=== PATIENT | female | born 1955 | race Caucasian/White ===

== ENCOUNTER 2021-04-15 13:41 | Inpatient (IN) | payer MEDICARE ==
[~2021-04-15] VITALS: Ht 170.2 cm; Wt 146.6 kg
--- NOTE | 2021-04-15 13:45 | NUR ---
TO ROM BY EMS FOR TRIAGE
--- NOTE | 2021-04-15 14:01 | NUR ---
POC REVIEWED. CALL LESTER IN REACH
[2021-04-15 14:10] LABS: HEMATOCRIT 45.2 % (37.0-47.0); HEMOGLOBIN 14.7 g/dl (12.0-16.0); IMMATURE GRANULOCYTES 0.5 % (0.0-5.0); MEAN CELL VOLUME 94.6 fL CALC (80.0-100.0); MEAN CORPUSCULAR HGB 30.8 pG CALC (26.0-32.0); MEAN CORPUSCULAR HGB CONC 32.5 g/dL CAL (32.0-36.0); NEUT# 14.8 thou/uL (2.00-7.15); RED BLOOD COUNT 4.78 mill/uL (4.20-5.60); RED CELL DISTRI WIDTH 13.3 % (11.5-15.5)
[2021-04-15 14:25] LABS: PROTHROMBIN TIME 10.5 SECONDS (9.0-12.5)
[2021-04-15 14:27] LABS: ALBUMIN 3.7 g/dL (3.2-5.0); ALKALINE PHOSPHATASE 103 u/l (38-126); ANION GAP 13 (6-22 (CALC)); BILIRUBIN, TOTAL 2.5 mg/dL (0.0-1.4); BUN 28 mg/dL (8-23); BUN/CREATININE RATIO 33 (12-20 (CALC)); CARBON DIOXIDE 26 mmol/l (22-30); CHLORIDE 101 mmol/l (95-108); CPK 856 u/l (30-165); CREATININE 0.8 mg/dL (0.5-1.0); GFR > 60 ML/MIN (>=60 (CALC)); GFR FOR AFR.AMER. > 60 ML/MIN (>=60 (CALC)); POTASSIUM 3.6 mmol/l (3.5-5.1); SGOT/AST 70 u/l (9-36); SODIUM 136 mmol/l (137-146); TOTAL PROTEIN 7.8 g/dL (6.3-8.2)
--- NOTE | 2021-04-15 14:28 | NUR ---
CAMILA FROM LAB CALLED, LACTIC 2.8
[2021-04-15] MEDS ORDERED: GABAPENTIN100 MG PO (14:53)
[2021-04-15] MEDS ORDERED: LISINOPRIL10 MG PO (14:54)
[2021-04-15] MEDS ORDERED: METOPROL TAR25 MG PO (14:54)
[2021-04-15] MEDS ORDERED: PRAVASTATIN20 MG PO (14:54)
--- NOTE | 2021-04-15 15:30 | NUR ---
PT SUPINE, STABLE ON MONITOR. NO CONCERNS VOICED. CALL LIGHT WITHIN REACH, BED IN LOW POSITION.
[2021-04-15 16:26] LABS: URINE BLOOD DIPSTICK LARGE (NEGATIVE); URINE COLOR YELLOW; URINE GLUCOSE - DIPSTICK NEGATIVE (NEGATIVE); URINE KETONE TRACE mg/dL (NEGATIVE); URINE LEUK ESTERASE NEGATIVE (NEGATIVE); URINE PROTEIN - DIPSTICK 100 mg/dL (NEG-TRACE); URINE SPECIFIC GRAVITY 1.025; URINE UROBILINOGEN - DIPSTICK >=8.0 E.U./dL (0.2)
[2021-04-15 16:32] LABS: URINE BILIRUBIN - DIPSTICK MODERATE (NEGATIVE); URINE NITRITE - DIPSTICK POSITIVE (Negative)
[2021-04-15 16:35] LABS: URINE BACTERIA FEW hpf; URINE SQUAMOUS EPITHELIAL CELL FEW EPI/hpf (0-FEW)
--- NOTE | 2021-04-15 16:51 | NUR ---
IV MEDS INFUSING WITHOUT DIFFICULTY.
--- NOTE | 2021-04-15 17:23 | NUR ---
FAMILY AT BEDSIDE. IV FLUIDS CONTINUE TO INFUSE WITHOUT DIFFICULTY. VITALS WNL.
--- NOTE | 2021-04-15 18:03 | NUR ---
ATTEMPTED TO CALL REPORT TO FLOOR, NURSE TO CALL BACK.
[2021-04-15 18:23] VITALS: BP 115/70
--- NOTE | 2021-04-15 18:36 | NUR ---
REPORT RECEIVED FROM JANUARY, PT TRANSPORTED TO ROOM VIA STRETCHER AND ASSISTED TO BED, LETHARGIC BLUR ORIENTED X 4, ORIENTED TO ROOM AND CALL LESTER, TELE MONITOR IN PLACE, VITAL SIGNS MEASURED WITH O2 SAT @ 82 ON R/A, O2 @ 2L APPLIED AND SATS WENT UP TO 92% THEN QUICKLY BACK DOWN TO 88%, RESPIRATORY THERAPIST NOTIFIED APPLIED VENTI MASK @ 3.5L, SATS WENT UP TO 93%. PT USING ABD MUSCLES TO BREATHE AT THIS TIME AND BREATHES BY MOUTH WITH SHALLOW BREATHS. HS NURSE WILL CONTINUE MONITORING AND ASSESSING, PT REMAINS VERY LETHARGIC AND FALLS INTO DEEP SNORING SLEEP BUT AROUSABLE AND ORIENTED WHEN AWAKE.
--- NOTE | 2021-04-15 20:13 | NUR ---
PHYSICAL ASSESMENT COMPLETE. PT CURRENTLY HAS LAGORED BREATHS ON 3.5 VENTI-MASK. SCHEDULED MEDICATIONS AND PRN MEDICATION ADMINISTERED, SEE E-MAR. PT DENIES ANY NEEDS AT THIS TIME. PLAN OF CARE REVIEWED, PT IS LATHARGIC BUT- VERBALIZES UNDERSTANDING. ITEMS WITHIN REACH, BED LOCKED IN LOW POSITION W/ BEDRAILS UP X2. CALL LESTER WITHIN REACH, AGREES TO CALL PRN.
[2021-04-16] VITALS (28 sets, daily range): BP systolic 88–154; BP diastolic 46–89
--- NOTE | 2021-04-16 00:45 | NUR ---
PT STILL REMAIN LETHARGIC AND STRUGGLES TO REMAIN AWAKE WHEN SPOKEN TOO. BALLOON ARTIST REPORTS PTS HEART RATE IS FLUCTUATING BETWEEN 110 AND 130 SINUS TACHY. THE PURWICK SYSTEM WAS PLACED THE PT HAS NOT URINATED SINCE ARRIVING TO THE FLOOR. ADVISED SOIL TECHNOLOGIST TRINO AND OTHER NURSE OF PTS CONDITION. AN EKG AND ABG WAS ORDERED. BLADDER SCAN REVEALED 510 ML RETENTION. RESPRITORY THERAPIST ADJUSTED VENTI MASK/O2 TO 35%. PT SATING AT 94%. WILL CONTINUE TO MONITOR.
--- NOTE | 2021-04-16 01:40 | NUR ---
PTS HEART RATE HAS LOWERED AND IMPROVED TO 110 BPM. WILL CONTINUE TO MONITOE.
--- NOTE | 2021-04-16 04:52 | NUR ---
PT VOIDED AT LEAST 400 CC OF DARK URINE. FRESH PURWICK IN PLACE. PT IS NOW COHEREENT AND COMMUICATING WITH NURSE AND RADIOLOGY SUPERVISOR. PT REQUESTED FRESH WATER AND TOOTHPASTE. WILL CONTINUE TO MONITOR.
[2021-04-16 06:01] LABS: HEMOGLOBIN 13.8 g/dl (12.0-16.0); MEAN CELL VOLUME 95.8 fL CALC (80.0-100.0); MEAN CORPUSCULAR HGB 30.7 pG CALC (26.0-32.0); MEAN CORPUSCULAR HGB CONC 32.1 g/dL CAL (32.0-36.0); NEUT# 13.26 thou/uL (2.00-7.15); RED BLOOD COUNT 4.49 mill/uL (4.20-5.60); RED CELL DISTRI WIDTH 13.7 % (11.5-15.5)
[2021-04-16 06:14] LABS: ALKALINE PHOSPHATASE 99 u/l (38-126); BILIRUBIN, TOTAL 3.1 mg/dL (0.0-1.4); BUN 33 mg/dL (8-23); BUN/CREATININE RATIO 32 (12-20 (CALC)); CARBON DIOXIDE 25 mmol/l (22-30); CHLORIDE 102 mmol/l (95-108); GFR 55 ML/MIN (>=60 (CALC)); GFR FOR AFR.AMER. > 60 ML/MIN (>=60 (CALC)); SGOT/AST 54 u/l (9-36); SODIUM 135 mmol/l (137-146)
[2021-04-16 06:19] LABS: ALBUMIN 2.9 g/dL (3.2-5.0); ANION GAP 13 (6-22 (CALC)); POTASSIUM 4.5 mmol/l (3.5-5.1); TOTAL PROTEIN 6.2 g/dL (6.3-8.2)
--- NOTE | 2021-04-16 07:00 | NUR ---
SHIFT CHANGE REPORT, PT SLEEPING AND SNORING BUT WILL AROUSE TO VERVAL AND TACTILE STIMULATION, REMAINS VERY LETHARGIC AND FALLS BACK INTO A SNORING SLEEP, VENTI MASK IN PLACE, IVF INFUSING, PUREWICK CATHETER IN PLACE, CALL LESTER IN REACH AND BED LOCKED IN LOWEST POSITION, WILL CONTINUE TO MONITOR.
--- NOTE | 2021-04-16 08:44 | NUR ---
NURSE AWAKENED PT WITH VERBAL STIMULATION, ORIENTED HER TO TIME, SAT HER UP IN BED AND SET HER UP TO PERFORM ORAL CARE, SHE DID THAT INDEPENDENTLY, SHE IS NOT LETHARGIC SHE WAS EARLIER, WILL SET HER UP FOR MEAL AT THIS TIME AND CONTINUE TO MONITOR.
--- NOTE | 2021-04-16 09:04 | NUR ---
SITTING UP IN BED NOW, MEDICAL TEAM ROUNDED AND DISCUSSED PLAN OF CARE, PT IS FULLY ORIENTED AND STATED UNDERSTANDING, SHE IS NOW HAVING MEAL AND BEING MONITORED FOR LETHARGY AND EFFECTIVE SWALLOWING.
--- NOTE | 2021-04-16 10:33 | NUR ---
PT REPORTED SHE LIVES WITH SON'S FAMILY [place] SHE FELL, IT TOOK 2 DAYS FOR THE TIMBER TREATMENT PLANT OPERATOR TO DISCOVER HER ON THE FLOOR THEN EMS WAS CALLED WHO TRANSPORTED HER TO ED.
--- NOTE | 2021-04-16 12:25 | NUR ---
PT TO ICU BED 4 VIA BED. REPORT RECEIVED FROM ZIGGY. PT HESISTANT ABOUT BEING PLACED ON BIPAP. RT AND MYSELF DISUCSSED BENEFITS OF BIPAP WITH PATIENT. PATIENT IS AGREEABLE AT THIS TIME TO BE PLACED ON BIPAP. RT PLACED PATIENT ON BIPAP. PT IS ALERT AND ORIENTED X3. ORIENTED TO ROOM AND UNIT. CALL LIGHT IN REACH. WILL CONTINUE TO MONITOR.
--- NOTE | 2021-04-16 12:32 | NUR ---
PT ARRIVED TO ICU FROM [facility] MRI. PT PLACED ON BIPAP PER ORDER. PT KRISTIN WELL AT THUIS TIME. NAD. VSS. MANAGER PSYCHOLOGY TO MONITOR.
--- NOTE | 2021-04-16 12:36 | NUR ---
TRANSFERRED TO ICU AT THIS TIME BY MD'S ORDER DUE TO HYPOXIA (O2 SATS @ 87-91) AND CONTINUED LETHARGY.
--- NOTE | 2021-04-16 12:40 | NUR ---
LAB AT BEDSIDE TO OBTAIN NOON TROPONIN
--- NOTE | 2021-04-16 14:00 | NUR ---
LOTT PLACED USING STERILE TECHNIQUE. # 20 PLACED TO LEFT HAND. PT TOLERATED WELL. DR BRAUN NOTIFIED OF MULTI PVCS MAG LEVEL ORDERED.
--- NOTE | 2021-04-16 16:10 | NUR ---
NEW ORDERS RECEIVED AT THIS TIME
--- NOTE | 2021-04-16 16:17 | NUR ---
RT AND LAB AT BEDSIDE AT THIS TIME.
[2021-04-16 16:36] LABS: ALBUMIN 3.2 g/dL (3.2-5.0); CREATININE 1.2 mg/dL (0.5-1.0); POTASSIUM 4.1 mmol/l (3.5-5.1)
--- NOTE | 2021-04-16 16:45 | NUR ---
DR SOLO AT BEDSIDE FOR CENTRAL LINE PLACEMENT.
--- NOTE | 2021-04-16 17:10 | NUR ---
RADIOLOGY AT BEDSIDE AT THIS TIME FOR STAT PORTABLE CHEST XRAY.
--- NOTE | 2021-04-16 17:45 | NUR ---
CONTACTED Josefina HIGHTOWER IN REFERENCE TO NOTED INVOLUNTARY MOVEMENT OF LEFT UPPER EXTREMITY. COMPLETED NEURO EXAM COMPLETED AT THIS TIME.
--- NOTE | 2021-04-16 18:06 | NUR ---
PHONE TELE NEURO SPECIALIST FOR CONSULT.
--- NOTE | 2021-04-16 18:13 | NUR ---
NURSE STEREOPLOTTER OPERATOR EVELINE CALLED FOR REPORT ON PATIENT. REPORT PROVIDED.
--- NOTE | 2021-04-16 19:00 | NUR ---
REPORT GIVEN BY LUIS. PATIENT RESTING IN BED WITH EYES CLOSED. RESP EVEN AND UNLABORED WITH BIPAP IN PLACE 30% FIO2, RATE 16, 10 IPAP, AND 5 EPAP. PATIENT RESPONDS TO VIOCE AND A&O X 4. IV INFUSING FLUIDS. LOTT DRAINING DARK MICHAEL COLORED URINE. FALL AND SAFTEY PRECAUTIONS IN PLACE. SKIN INTACT. PLAN OF CARE DISCUSSED. PATIENT INFORMED TO CALL WITH ANY QUESTIONS OR CONCERNS.
--- NOTE | 2021-04-16 19:20 | NUR ---
NEW ORDERS GIVEN FOR NS 0.9% IV 500 ML BOLUS FOR POOR URINE OUTPUT. REPEAT LATIC AND TROP. CHANGE IV FLUIDS FROM 1/2 NS 75 ML/HR TO 0.9% NS 100 ML/HR. NEW ORDERS GIVEN BY DR. AN.
--- NOTE | 2021-04-16 20:00 | NUR ---
LOTTIE HIGHTOWER UPDATED ABOUT THE PATIENT'S WEIGHT AND GIRTH. NATURAL SCIENCE MANAGER CALLED AND STATED PATIENT IS TOO LARGE FOR OUR MRI, CHEMIST INSTRUMENTATION UPDATED.
--- NOTE | 2021-04-16 21:00 | NUR ---
UPDATED ON PATIENT CONDITION AND URINE OUTPUT
--- NOTE | 2021-04-16 21:27 | NUR ---
SON GABRIELLA UPDATED WITH PATIENT PERMISSION, CODE WORD GIVEN TO SON FOR FURTURE UPDATE.
--- NOTE | 2021-04-16 23:32 | NUR ---
RT AT THE BEDSIDE
[2021-04-17] VITALS (17 sets, daily range): BP systolic 86–138; BP diastolic 49–77
--- NOTE | 2021-04-17 02:00 | NUR ---
PATIENT ASKING FOR WATER AND JUICE. BOTH PROVIDED. PATIENT HAD NO DIFFCULTY. FALL AND SAFTEY PRECAUTIONS IN PLACE.
--- NOTE | 2021-04-17 03:51 | NUR ---
RT AT THE BEDSIDE CHACKING ON PATIENT
[2021-04-17 05:07] LABS: HEMOGLOBIN 11.7 g/dl (12.0-16.0); MEAN CELL VOLUME 97.4 fL CALC (80.0-100.0); MEAN CORPUSCULAR HGB 30.8 pG CALC (26.0-32.0); MEAN CORPUSCULAR HGB CONC 31.6 g/dL CAL (32.0-36.0); RED BLOOD COUNT 3.8 mill/uL (4.20-5.60); RED CELL DISTRI WIDTH 13.5 % (11.5-15.5)
[2021-04-17 05:28] LABS: ANION GAP 9 (6-22 (CALC)); BUN 30 mg/dL (8-23); BUN/CREATININE RATIO 38 (12-20 (CALC)); CALCULATED LDLCHOLESTEROL 82 mg/dL (62-129 (CALC)); CARBON DIOXIDE 29 mmol/l (22-30); CHLORIDE 101 mmol/l (95-108); CHOLESTEROL HDL RATIO 9.1 (<4.4 (CALC)); CPK 294 u/l (30-165); CREATININE 0.8 mg/dL (0.5-1.0); GFR > 60 ML/MIN (>=60 (CALC)); GFR FOR AFR.AMER. > 60 ML/MIN (>=60 (CALC)); HDL CHOLESTEROL 14 mg/dL (>=40); MAGNESIUM 2.3 mg/dL (1.6-2.3); POTASSIUM 3.9 mmol/l (3.5-5.1); SODIUM 135 mmol/l (137-146); TOTAL CHOLESTEROL 130 mg/dl (0-199); TOTAL TRIGLYCERIDES 170 mg/dl (30-149); VLDL CHOLESTROL 34 mg/dl (1-41 (CALC))
--- NOTE | 2021-04-17 05:47 | NUR ---
UPDATED SON KAT ON PATIENT CONDITION WITH PATIENT'S PERMISSSION.
--- NOTE | 2021-04-17 06:45 | NUR ---
PT IN BED, LAYING FLAT. NO ACUTE DISTRESS NOTED AT THIS TIME. PT SEEMS AROUSABLE. RESPIRATORY STATUS IS UNCOMPROMISED AT THIS TIME. AMBULANCE DRIVER PARAMEDIC TO MONITOR.
--- NOTE | 2021-04-17 07:00 | NUR ---
PATIENT RECIEVED FROM NIGHT NURSE.
--- NOTE | 2021-04-17 07:28 | NUR ---
PATIENT ASSESSED. A/O X3. ON BIPAP CURRENTLY 98% O2 SATS. ON ROOM AIR SHE SATS MID 80'S WHEN SHE IS TALKING. ROOM AIR NOT TALKING SHE SATS 90%. PERRLA. DRY MOUTH, REQUESTED SOME WATER AND CRANBERRY JUICE, WAS PROVIDED. CLEAR/DIM LUNG SOUNDS. ABD SOFT AND OBESE. HYPOACTIVE BOWEL SOUNDS. PATIENT UNABLE TO RECALL RECENT BOWEL MOVEMENT. SKIN IS INTACT. EDEMA IN BLE PITTING 1. WEAK PEDAL PULSES, OTHER PULSES STRONG. DOES HAVE SOME WEAKNESS WHEN LIFTING UP HER EXTREMITIES, PATIENT STATES SHE FEELS WEAK/TIRED. SAEFTY MEASURES IN PLACE. CALL LIGHT IN REACH. WILL CONTINUE TO MONITOR.
--- NOTE | 2021-04-17 08:00 | NUR ---
PATIENT IS NOW ON 15L HIGH FLOW NC. SATS ARE 98% WHILE EATING HER BREAKFAST. SITTING HIGH CANALES AT THIS TIME. SAFETY MEASURES IN PLACE. CALL LIGHT IN REACH. WILL CONTINUE TO MONITOR.
--- NOTE | 2021-04-17 08:02 | NUR ---
prelim blood cx results show gram positive cocci in 4/4 vials, reported to bruce, changed pt to vancomycin. will f/u with final results
--- NOTE | 2021-04-17 10:00 | NUR ---
PATIENT LAYING IN BED, WITH BIPAP ON PER DOCTOR'S ORDERS.
--- NOTE | 2021-04-17 10:20 | NUR ---
S: CELSETINE FRAIRE is a 65 F who presents with bacteremia. She has a history of HTN, high cholesterol. All medications in patient's chart were reviewed. O: VS: BP 136/57 mmHg, P 95 bpm, RR 18 bpm,T 97.2 F W 145 Kg, HT 67 IN, Scr=0.8 mg/dl, CrCl= 126.7 ml/min A: Preliminary Blood cultures shows gram positive cocci. Urine culture shows no growth. P: Patient is on no other ABX. Vancomycin ordered for pharmacy to dose. Start Vancomycin 1250 mg IV Q8H. Vancomycin trough is drawn before the 4th dose on 04/18 @ 0830. Vancomycin goal trough is between 15-20 mcg/ml. Pharmacy will follow and or advise on antibiotics use as needed.
--- NOTE | 2021-04-17 10:30 | NUR ---
PATIENT'S SON GABRIELLA, GAVE US HER CODE AND REQUESTED AN UPDATE ON HIS MOTHER. UPDATE WAS GIVEN. GABRIELLA STATED THAT HE WAS HAPPY WITH THE UPDATES GIVEN AND THAT HE WILL BE CALLING LATER TODAY FOR ANOTHER UPDATE.
--- NOTE | 2021-04-17 10:52 | NUR ---
Physical Therapy Note: Physical therapist went to see the patient for physical therapy. Patient expressed that she just wants to rest and to reschedule physical therapy for another day.
--- NOTE | 2021-04-17 12:00 | NUR ---
PATIENT IS CURRENTLY RESTING IN BED
--- NOTE | 2021-04-17 12:45 | NUR ---
PATIENT IS GETTING HER ULTRASOUND DONE NOW
--- NOTE | 2021-04-17 13:27 | NUR ---
AGITATOR OPERATOR AND RN ASSISTED PT TO BEDSIDE CHAIR. PT KRISTIN WELL AT THIS TIME. PT STILL ON NIV. KRISTIN WELL. AGITATOR OPERATOR TO MONITOR.
--- NOTE | 2021-04-17 13:30 | NUR ---
PATIENT IS SITTING UP IN CHAIR EATING LUNCH AT THIS TIME. SAEFTY MEASURES IN PLACE. CALL LIGHT IN REACH. WILL CONTINUE TO MONITOR.
--- NOTE | 2021-04-17 14:14 | NUR ---
PATIENT RECIEVED A FULL BED BATH AND CLEAN LINENS. PATIENT STATED SHE FEELS SO MUCH BETTER. PATIENT REQUESTED TO CONTINUE TO SIT UP IN THE CHAIR AND WATCH TV. SAEFTY MEASURES IN PLACE. CALL LIGHT IN REACH. WILL CONTINUE TO MONTIOR.
--- NOTE | 2021-04-17 15:00 | NUR ---
PATIENT'S SON CAME UP TO VISIT HER.
--- NOTE | 2021-04-17 16:00 | NUR ---
PATIENT RESTING IN BED WITH BIPAP ON, O2 SATS ARE 98%. SAEFTY MEASURES IN PLACE CALL LIGHT IN REACH WILL CONTINUE TO MONIOTR.
--- NOTE | 2021-04-17 18:00 | NUR ---
PATIENT IS TALKING ON THE PHONE, WATCHING TV AND EATING DINNER. SAFETY MEASURES IN PLACE. CALL LIGHT IN REACH. WILL CONTINUE TO MONITOR.
--- NOTE | 2021-04-17 18:32 | NUR ---
SON GABRIELLA CALLED FOR AN UPDATE, UPDATE WAS GIVEN. STATED THAT HE WILL CALL HIS MOTHER ON HER CELL PHONE.
--- NOTE | 2021-04-17 19:12 | NUR ---
PT CURRENTLY OFF BIPAP WITH 4L NASAL CANNULA. RESTING WELL. HR 72, RR 16, SPO2 95%. WILL CONTINUE WITH BIPAP TONIGHT.
--- NOTE | 2021-04-17 19:50 | NUR ---
RESTING IN BED ON ROUNDS. AWAKE, ALERT AND ORIENTED. RESP NON-LABORED. O2 ON AT 5 L HFNC PATIENT JUST FINISHED EATING DINNER AND IS CURRENTLY ON THE PHONE WITH HER FAMILY. O2 SAT 93-95% BREATH SOUNDS DIMINISHED THROUGHOUT LUNG SIMENTAL. LOTT PATENT DRAINING CLEAR TEA COLORED URINE. 1+ EDEMA OF BLE. WEAKLY PALPABLE PERIPHERAL PULSES. RIJTLC IN PLACE NS INFUSING AT 30 ML/HR AND TWO PORTS SALINELOCKED. IV SITE SALINE LOCKED, FLUSHED AND PATENT. ORDER PACKER SHOWS SR WITH OCC PVC'S. DISCUSSED PLAN OF CARE. DENIES NEEDS AT THIS TIME. CALL LESTER IN REACH.
--- NOTE | 2021-04-17 21:51 | NUR ---
PATIENT PLACED ON BIPAP FOR THE NIGHT BY BOOT MAKER.
--- NOTE | 2021-04-17 21:52 | NUR ---
PT PLACED BACK ON BIPAP FOR THE NIGHT / 30%. TOLERATING WELL HR 91, RR 24, SPO2 95%
[2021-04-18] VITALS (18 sets, daily range): BP systolic 99–160; BP diastolic 56–85
--- NOTE | 2021-04-18 | NUR ---
RESTING IN BED WITH EEYS CLOSED. BIPAP IN PLACE. RESP NON-LABORED. VSS. SR WITH OCC PVC'S ON MONITOR.
--- NOTE | 2021-04-18 02:00 | NUR ---
RESTING WITH EYES CLOSED. O2 SAT 95% MONITOR SR WITH FREQ PVC'S NOTED.
--- NOTE | 2021-04-18 04:00 | NUR ---
NO CHANGES TO REPORT. TOLERATING BIPAP WELL. VSS. SR WITH FREQ PVC'S, 3,4 AND 5 BEAT RUNS VT, SELF TERMINATING, PATIENT ASYMPTOMATIC.
--- NOTE | 2021-04-18 05:10 | NUR ---
BLOOD DRAWN FFROM TLC FOR AM LAB WORK. ALL PORTS OF TLC FLUSHED PER PROTOCOL AND PATENT.
[2021-04-18 05:35] LABS: HEMATOCRIT 38.1 % (37.0-47.0); HEMOGLOBIN 12.2 g/dl (12.0-16.0); MEAN CELL VOLUME 96.5 fL CALC (80.0-100.0); MEAN CORPUSCULAR HGB 30.9 pG CALC (26.0-32.0); RED BLOOD COUNT 3.95 mill/uL (4.20-5.60); RED CELL DISTRI WIDTH 13.5 % (11.5-15.5)
[2021-04-18 05:52] LABS: ALBUMIN 2.6 g/dL (3.2-5.0); ANION GAP 7 (6-22 (CALC)); BUN 20 mg/dL (8-23); BUN/CREATININE RATIO 31 (12-20 (CALC)); CARBON DIOXIDE 29 mmol/l (22-30); CHLORIDE 100 mmol/l (95-108); CREATININE 0.6 mg/dL (0.5-1.0); GFR > 60 ML/MIN (>=60 (CALC)); GFR FOR AFR.AMER. > 60 ML/MIN (>=60 (CALC)); POTASSIUM 3.6 mmol/l (3.5-5.1); SGOT/AST 55 u/l (9-36); SODIUM 133 mmol/l (137-146); TOTAL PROTEIN 5.9 g/dL (6.3-8.2)
[2021-04-18 05:53] LABS: ALKALINE PHOSPHATASE 145 u/l (38-126); BILIRUBIN, TOTAL 1.6 mg/dL (0.0-1.4)
--- NOTE | 2021-04-18 06:10 | NUR ---
PATIENT SLEPT WELL. EASILY AWAKENS TO NAME. VSS. REMANS ON BIPAP.
--- NOTE | 2021-04-18 06:43 | NUR ---
PT RESTING COMFORTABLY IN BED, LAYING FOLAT. NAD. VSS. KNIFE SHARPENER TO MONITOR.
--- NOTE | 2021-04-18 06:45 | NUR ---
PATIENT RECIEVED FROM NIGHT NURSE YOSEF.
--- NOTE | 2021-04-18 07:30 | NUR ---
PATIENT ASSESSED. A/O X3. ABLE TO MAKE NEEDS KNOWN. SAT UP TO EAT BREAKFAST USED HER NC AT 4L WHILE EATING. DIMINISHED LUNG SOUNDS WITH WHEEZING IN THE LOWER LOBES OF THE LUNGS. SR/ST WITH PVC'S ON THE TELLE MONITOR. ACTIVE BOWEL SOUNDS. SOFT OBESE ABDOMEN STATES NO PAIN WHEN PALPATING. EDEMA +1 ON BLE. WEAK PEDAL PUSLES. OTHER PULSES ARE STRONG. PAINATALIA IS CONTINUE TO COMPLAIN ABOUT THE BI-PAP. EXPLAINED TO HER AGAIN THAT IT'S PER DOCTORS ORDERS. SHE MOANED AND SAID "FINE BUT AFTER I FINISH MY BREAKFAST YOU GIVE ME A BREAK THEN ILL PUT IT ON I GUESS". SAEFTY MEASURES IN PLACE. CALL LIGHT IN REACH. WILL CONTINUE TO MONITOR.
--- NOTE | 2021-04-18 08:20 | NUR ---
INFORMED PATIENT THAT SINCE WE ARE GIVING HER THE LASIX I WILL BE WAITING AN HOUR TO GIVE HER THE MORNING DOSE OF LOPRESSOR DUE TO BLOOD PRESSURE POSSIBLY GOING DOWN. SHE AGREED TO IT. SAEFTY MEASURES IN PLACE. CALL LIGHT IN REACH. WILL CONTINUE TO MONITOR.
--- NOTE | 2021-04-18 09:42 | NUR ---
pt weaned to 4lpm nc. nereida well. nad. vss.
--- NOTE | 2021-04-18 10:27 | NUR ---
PATIENT IS SITTING UP IN CHAIR WITH O2 HFNC AT 5L SATS ARE 94% WHILE SHE WATCHES TV. PATIENT IS ALLOWED TO BE OFF BI-PAP IF SHE IS UP IN THE CHAIR NOT SLEEPING PER DOCTOR STEVEN BUT WITH NC ON. SHE REQUESTED TO WASHED UP, REQUEST WAS GRANTED. CURRENTLY BRUSHING HER HAIR. CLEAN LINENS ARE PLACED ON THE BED. SAEFTY MEASURES IN PLACE. CALL LIGHT IN REACH. WILL CONTINUE TO MONITOR.
--- NOTE | 2021-04-18 12:00 | NUR ---
PATIENT IS CURRENTLY WITH ROSA.
--- NOTE | 2021-04-18 12:21 | NUR ---
Patient did seated B LE AROM exercises doing hip flexion, knee extension, hamstring curls, hip adduction, hip abduction, gluteal squeezes, and ankle AROM for 10 reps x 2 sets with minimal verbal and tactile cuing to help decrease trick movements. Patient required moderate assistance x 1 with sit to stand and bed mobility log rolling transfer ADLs for 1-2 reps with occasional verbal and tactile cuing to decrease fall risks.
--- NOTE | 2021-04-18 14:00 | NUR ---
PATIENT IS SITTING UP IN CHAIR WATCHING TV AT THIS TIME. SAEFTY MEASURES IN PLACE. CALL LIGHT IN REACH. WILL COTNINUE TO MONITOR.
--- NOTE | 2021-04-18 18:02 | NUR ---
PATIENT IS EATING AND TALKING ON THE PHONE AT THIS TIME. SAEFTY ,MEASURES IN PLACE. CALL LIGHT IN REACH. WILL CONTINUE TO MONITOR.
--- NOTE | 2021-04-18 19:20 | NUR ---
RESTING IN BED WITH EYES CLOSED. AWAKENS EASILY TO NAME. ALERT AND ORIENTED ON AWAKENING. RESP NON-LABORED. USING O2 AT 4 L HFNC AT THIS TIME. O2 SAT 95% BREATH SOUNDS DIMINISHED THROUGHOUT LUNG SIMENTAL, NO WHEEZES HEARD AT THIS TIME. 1+ EDEMA OF BLE. WEAKLY PALPABLE PEDAL PULSES. SALINE LOCK INTACT IN , SITE BENIGN. RIJTLC IN PLACE WITH NS INFUSING AT 30 ML/HR. LOTT DRAINING CLEAR MICHAEL URINE. MEDICAL CODING TECHNICIAN SHOWS SR WITH FREQ PVC'S. DICUSSED PLAN OF CARE. REINFORCE NEEDED. CALL LESTER IN REACH.
--- NOTE | 2021-04-18 21:05 | NUR ---
PT PLACED BACK ON BIPAP FOR THE NIGHT. 10/ 30%. HR 85, RR 27, SPO2 96%.
--- NOTE | 2021-04-18 22:00 | NUR ---
RESTNG WITH EYES CLOSED. RESP NON-LABORED ON BIPAP FOR THE NIGHT.
--- NOTE | 2021-04-18 22:20 | NUR ---
DR AN INFORMED OF INCREASED VENTRICULAR ECTOPY, VS, URINE OUTPUT FOR DAY SHIFT AND AM MAGNESIUM AND POTASSIUM LEVELS. NEW ORDERS RECEIVED.
[2021-04-19] VITALS (16 sets, daily range): BP systolic 113–155; BP diastolic 55–80
--- NOTE | 2021-04-19 | NUR ---
PATIENT RESTING WITH EYES CLOSED. VSS. RESP NON-LABORED. ON BIPAP. O2 SAT 97%
--- NOTE | 2021-04-19 02:00 | NUR ---
RESTING WITH EYES CLOSED. VSS. RESP NON-LABORED. SR WITH FREQ PVC'S ON MONITOR.
--- NOTE | 2021-04-19 04:00 | NUR ---
CONTINUES TO REST QUIETLY. BIPAP IN PLACE. RESP NON-LABORED. O2 SAT 96% VSS. NS INFUSING AT KVO TO RIJTLC. SR WITH FREQ PVC'S ON MONITOR.
[2021-04-19 05:01] LABS: HEMATOCRIT 39.5 % (37.0-47.0); HEMOGLOBIN 12.7 g/dl (12.0-16.0); MEAN CELL VOLUME 95.6 fL CALC (80.0-100.0); MEAN CORPUSCULAR HGB 30.8 pG CALC (26.0-32.0); MEAN CORPUSCULAR HGB CONC 32.2 g/dL CAL (32.0-36.0); RED BLOOD COUNT 4.13 mill/uL (4.20-5.60); RED CELL DISTRI WIDTH 13.3 % (11.5-15.5)
[2021-04-19 05:26] LABS: ANION GAP 8 (6-22 (CALC)); BUN 14 mg/dL (8-23); BUN/CREATININE RATIO 23 (12-20 (CALC)); CARBON DIOXIDE 33 mmol/l (22-30); CHLORIDE 97 mmol/l (95-108); CREATININE 0.6 mg/dL (0.5-1.0); GFR > 60 ML/MIN (>=60 (CALC)); GFR FOR AFR.AMER. > 60 ML/MIN (>=60 (CALC)); MAGNESIUM 2.1 mg/dL (1.6-2.3); POTASSIUM 3.4 mmol/l (3.5-5.1); SODIUM 136 mmol/l (137-146)
--- NOTE | 2021-04-19 06:10 | NUR ---
SLEPT WELL. VSS. RESP NON-LABORED. CONTINUES IN SR ON MONITOR WITH FREQ PVC'S. KAYLIE DRIANED 500 ML CLEAR MICHAEL URINE DURING THE NIGHT.
--- NOTE | 2021-04-19 06:50 | NUR ---
PATIENT RECIEVED FROM [facility].
--- NOTE | 2021-04-19 06:56 | NUR ---
BIPAP STANDBY. PLACED ON 4L NC.
--- NOTE | 2021-04-19 07:25 | NUR ---
PATIENT ASSESSED, A/O X3. ABLE TO MAKE NEEDS KNOWN TO STAFF. DENIES PAIN AT THIS TIME. STATED THAT THE BI-PAP MASK WAS THE ONLY THING CAUSING HER TO HAVE DISCOMFORT. IT WAS TAKEN OFF BY RT, SHE IS PLACED ON HFNC AT THIS TIME AT 4L. CLEAR LUNGS ON THE TOP LOBES AND DIMINISHED MIDDLE AND BOTTOM LOBES. ACTIVE BOWEL SOUNDS. EDEMA BLE 1+. STRONG PULSES. SAFETY MEASURES IN PLACE. CALL LIGHT IN REACH. WILL CONTINUE TO MONITOR.
--- NOTE | 2021-04-19 07:45 | NUR ---
PATIENT IS UP TO CHAIR WATCHING TV.
--- NOTE | 2021-04-19 09:20 | NUR ---
PATIENT HAD A BED BATH. BRUSHED HER TEETH AND USED MOUTH WASH. LINENS WERE CHANGED. PATIENT REMAINS IN CHAIR WATCHING TV.
--- NOTE | 2021-04-19 10:20 | NUR ---
CALLED [facility]. SPOKE TO ANGEL, REQUESTED PAPERS FAXED OVER. PAPERS WERE FAXED OVER.
--- NOTE | 2021-04-19 12:00 | NUR ---
PATIENT EATING LUNCH AT THIS TIME.
--- NOTE | 2021-04-19 13:15 | NUR ---
SPOKE TO SON KAT OVER THE PHONE, CODE WAS GIVEN, UPDATED GIVEN REQUESTED.
--- NOTE | 2021-04-19 14:00 | NUR ---
PATIENT HAS BI-PAP ON, LAYING IN BED, SLEEPING.
--- NOTE | 2021-04-19 14:50 | NUR ---
SPOKE TO PATIENT'S SON MICA OVER THE PHONE, UPDATES WERE GIVEN.
--- NOTE | 2021-04-19 15:57 | NUR ---
KIA STANDBY. PT. ON [facility].
--- NOTE | 2021-04-19 16:00 | NUR ---
PATIENT SITTING UP IN BED WATCHING TV. CONTINUES 4L NC.
--- NOTE | 2021-04-19 19:15 | NUR ---
awakens easily. denies distress. o2 cont per nc. product tester shows sinus rhythm multi pvcs & runs of pvcs. rij tlc in place. ns infusing @ 30cchr. po fluids limited. dickson cath in place. urine tea colored. fall precautions cont.
--- NOTE | 2021-04-19 21:30 | NUR ---
mom 30cc po given per request for constipation.
--- NOTE | 2021-04-19 22:00 | NUR ---
rij dressing loose. dsg changed.
--- NOTE | 2021-04-19 22:15 | NUR ---
pt requested NOT to have bipap on. request denied. instructed of physicians instructions. rt notified of need for bipap.
--- NOTE | 2021-04-19 22:30 | NUR ---
rt here. bipap began.
[2021-04-20] VITALS (7 sets, daily range): BP systolic 116–150; BP diastolic 58–81
--- NOTE | 2021-04-20 00:01 | NUR ---
yes closed. bipap cont. manager cardiac shows sinus rhythm freq pvs & runs of vtach.
--- NOTE | 2021-04-20 01:25 | NUR ---
pt removed bipap & said "it's my choice to have it off" & refused for this inspector automatic typewriter to replace. requested to have nasal cannula on. rt notified of pts request.
--- NOTE | 2021-04-20 04:00 | NUR ---
has been awake since bipap off but is resting now. patient monitor shows sinus rhythm freq pvcs & runs of vtach.
--- NOTE | 2021-04-20 05:10 | NUR ---
[facility] called this sql report writer. update given. said they are working on her a bed.
--- NOTE | 2021-04-20 05:50 | NUR ---
carmen from [facility] transfer center called this literary writer. bed assignment rec'd. [phone]. report to be called to [phone]. chart copied. disc requested from pippa.
--- NOTE | 2021-04-20 06:20 | NUR ---
tan from [facility] called. informed of need for transfer to [facility]. will be here around 0930. message left for son(lizy).
--- NOTE | 2021-04-20 06:47 | NUR ---
BIPAP STANDBY. PT. ON 4L NC. O2 SATURATION 94%.
--- NOTE | 2021-04-20 08:00 | NUR ---
PATIENT ASSISTED UP TO CHAIR AT THIS TIME. LIABILITY ANALYST DONE SEE INTERVENTIONS. PATIENT REFUSING TO WEAR BIPAP AT THIS TIME AND HAS O2 ON AT 4L AND SPO2 IS 95% AT THIS TIME. LUNG SOUNDS ARE DIMINISHED. BOWEL SOUNDS PRESENT. 2GM OF ANCEF HUNG AT THIS TIME. NEW URNIARY TUBING CHANGED AND CATH CARE GIVEN. TRIPLE LUMEN PATENT AND FLUSHING WELL HOWEVER NO BLOOD RETURNED FROM ANY LUMEN AT THIS TIME. PATIENT VERBALIZES UNDERSTANDING OF TRANSFER TO [facility] TODAY. PATIENT DENIES ANY PAIN OR NEEDS AT THIS TIME. CALL LIGHT AND PERSONAL ITEMS ARE WITHIN REACH AT THIS TIME.
[2021-04-20 08:53] LABS: HEMATOCRIT 42.5 % (37.0-47.0); HEMOGLOBIN 13.7 g/dl (12.0-16.0); MEAN CELL VOLUME 95.3 fL CALC (80.0-100.0); MEAN CORPUSCULAR HGB 30.7 pG CALC (26.0-32.0); MEAN CORPUSCULAR HGB CONC 32.2 g/dL CAL (32.0-36.0); RED BLOOD COUNT 4.46 mill/uL (4.20-5.60); RED CELL DISTRI WIDTH 13.5 % (11.5-15.5)
[2021-04-20 09:07] LABS: ALBUMIN 2.8 g/dL (3.2-5.0); ALKALINE PHOSPHATASE 116 u/l (38-126); ANION GAP 10 (6-22 (CALC)); BUN 16 mg/dL (8-23); BUN/CREATININE RATIO 26 (12-20 (CALC)); CARBON DIOXIDE 31 mmol/l (22-30); CHLORIDE 100 mmol/l (95-108); CREATININE 0.6 mg/dL (0.5-1.0); GFR > 60 ML/MIN (>=60 (CALC)); GFR FOR AFR.AMER. > 60 ML/MIN (>=60 (CALC)); PLATELET COUNT 304 thou/uL (130-400); POTASSIUM 3.8 mmol/l (3.5-5.1); SGOT/AST 32 u/l (9-36); SODIUM 137 mmol/l (137-146); TOTAL PROTEIN 6.7 g/dL (6.3-8.2)
[2021-04-20 09:12] LABS: MANUAL DIFFERENTIAL YES
[2021-04-20 09:21] LABS: BILIRUBIN, TOTAL 0.6 mg/dL (0.0-1.4)
--- NOTE | 2021-04-20 09:40 | NUR ---
TRANSPORT ([facility]) TO TRANSFER PATIENT TO [facility] AT THIS TIME. PATIENT ALERT AND ORIENTED AND STATE NO PAIN AT THIS TIME. PATIENT WALKED TO STRETCHER WITHOUT DIFFICULTY.
--- NOTE | 2021-04-20 09:55 | NUR ---
PATIENT TRANSFERED AT THIS TIME Discharge instructions given. Patient verbalizes understanding of same. Discharged in stable condition via Stretcher to *Other with *Other. All belongings sent with pt. PATIENT TRANSFERED AT THIS TIME VIA STRETCHER WITH [facility]. PATINET LEFT WITH IV .9NORMAL SALINE AT 10ML PER HOUR. REPORT CALLED TO ABDIFATAH HIDALGO ON ON .
== END 2021-04-20 09:55 | disposition short-term general hospital (02) | DRG 871 ==
LOC: ED 13:41 → ED-I 14:35 → ED 14:35 → ED-I 15:42 → ED 17:21 → MS2 17:22 → ICU 04-16 12:08
PROVIDERS: Family Medicine; Hospitalist; Internal Medicine; Nurse Practitioner; ADMIT Internal Medicine; ATTEND Internal Medicine
PROC: 05HY33Z Insertion of Infusion Device into Upper Vein, Percutaneous Approach (ICD-10-PCS; principal; 2021-04-16)
PROC: 5A09357 Assistance with Respiratory Ventilation, Less than 24 Consecutive Hours, Continuous Positive Airway Pressure (ICD-10-PCS; 2021-04-16)
DX: A41.01 Sepsis due to Methicillin susceptible Staphylococcus aureus (principal); G93.41 Metabolic encephalopathy; I50.31 Acute diastolic (congestive) heart failure; J96.92 Respiratory failure, unspecified with hypercapnia; J96.91 Respiratory failure, unspecified with hypoxia; M62.82 Rhabdomyolysis; N39.0 Urinary tract infection, site not specified; Z68.43 Body mass index [BMI] 50.0-59.9, adult; I47.2 Ventricular tachycardia; R65.20 Severe sepsis without septic shock; I11.0 Hypertensive heart disease with heart failure; E78.5 Hyperlipidemia, unspecified; G62.9 Polyneuropathy, unspecified; R25.3 Fasciculation; E66.9 Obesity, unspecified; I49.3 Ventricular premature depolarization; Z20.822 Contact with and (suspected) exposure to COVID-19
CPT/HCPCS: G0378; J1650; J3370; J3475; Q9967

== ENCOUNTER 2021-12-09 13:32 | Inpatient (IN) | payer MEDICARE ==
[~2021-12-09] VITALS: Ht 165.1 cm; Wt 150.0 kg
[~2021-12-09 13:32] MED LIST: GABAPENTIN100 MG PO; LISINOPRIL5 MG PO; METOPROL TAR25 MG PO; PRAVASTATIN20 MG PO
--- NOTE | 2021-12-09 13:35 | NUR ---
PT TO ROOM VIA WHEELCHAIR
[2021-12-09 14:26] LABS: HEMATOCRIT 44.8 % (37.0-47.0); HEMOGLOBIN 14.3 g/dl (12.0-16.0); IMMATURE GRANULOCYTES 0.4 % (0.0-5.0); MEAN CELL VOLUME 94.9 fL CALC (80.0-100.0); MEAN CORPUSCULAR HGB 30.3 pG CALC (26.0-32.0); MEAN CORPUSCULAR HGB CONC 31.9 g/dL CAL (32.0-36.0); NEUT# 5.44 thou/uL (2.00-7.15); RED BLOOD COUNT 4.72 mill/uL (4.20-5.60); RED CELL DISTRI WIDTH 14.4 % (11.5-15.5)
[2021-12-09 14:38] LABS: ALBUMIN 4.2 g/dL (3.2-5.0); ALKALINE PHOSPHATASE 94 u/l (38-126); BUN 24 mg/dL (8-23); BUN/CREATININE RATIO 21 (12-20 (CALC)); CHLORIDE 110 mmol/l (95-108); CREATININE 1.1 mg/dL (0.5-1.0); GFR 50 ML/MIN (>=60 (CALC)); GFR FOR AFR.AMER. 60 ML/MIN (>=60 (CALC)); POTASSIUM 4.1 mmol/l (3.5-5.1); SODIUM 142 mmol/l (137-146); TOTAL PROTEIN 7.8 g/dL (6.3-8.2)
[2021-12-09 14:46] LABS: ANION GAP 12 (6-22 (CALC)); BILIRUBIN, TOTAL 0.9 mg/dL (0.0-1.4); CARBON DIOXIDE 24 mmol/l (22-30); SGOT/AST 59 u/l (9-36)
--- NOTE | 2021-12-09 15:00 | NUR ---
RESTING IN HIGH FOWLERS WITH EYES CLOSED, AWAKENS EASILY, RESPS EVEN AND UNLABORED ON O2 VIA NC. DENIES NEEDS AT THIS TIME. VISITOR AT BEDTIME
[2021-12-09] MEDS ORDERED: LIPITOR10 M1 PO (15:14)
[2021-12-09] MEDS ORDERED: DICLOFENAC75 MG PO (15:15)
[2021-12-09] MEDS ORDERED: LASIX 20 MG TAB20 MG PO (15:16)
--- NOTE | 2021-12-09 17:00 | NUR ---
RESTING QUIETLY, RESPS EVEN AND UNLABORED ON O2 VIA NC. VSS, MONITORS ATTACHED
--- NOTE | 2021-12-09 18:53 | NUR ---
REPORT TO YG RN
--- NOTE | 2021-12-09 19:23 | NUR ---
W/P/D SKIN NO SOB NO C/O PAIN NO COUGH NOR CONGESTION
--- NOTE | 2021-12-09 20:00 | NUR ---
PT NASALLY SWABBED FOR SPEC.NO COUGH NO CONGESTION NO C/O SOB
--- NOTE | 2021-12-09 21:35 | NUR ---
W/P/D SKIN NO COUGH NO CONGESTION NO C/O DYSPNEA NSR NO ECTOPY
--- NOTE | 2021-12-09 22:50 | NUR ---
PHONE REPORT TO NURSE NICOLE ON MS
--- NOTE | 2021-12-09 23:00 | NUR ---
PT TRANSPORTED TO [place] VIA [facility] IN STABLE CONDITION
--- NOTE | 2021-12-09 23:24 | NUR ---
PT ARRIVED ON FLOOR, ASSEMENT COMPLETED AT THIS TIME.
[2021-12-10 01:36] VITALS: BP 130/61
[2021-12-10 04:30] VITALS: BP 127/72
[2021-12-10 05:49] LABS: HEMATOCRIT 43.6 % (37.0-47.0); HEMOGLOBIN 13.8 g/dl (12.0-16.0); MEAN CELL VOLUME 95.6 fL CALC (80.0-100.0); MEAN CORPUSCULAR HGB 30.3 pG CALC (26.0-32.0); MEAN CORPUSCULAR HGB CONC 31.7 g/dL CAL (32.0-36.0); RED BLOOD COUNT 4.56 mill/uL (4.20-5.60); RED CELL DISTRI WIDTH 14.6 % (11.5-15.5)
[2021-12-10 06:10] LABS: ANION GAP 12 (6-22 (CALC)); BUN 23 mg/dL (8-23); BUN/CREATININE RATIO 24 (12-20 (CALC)); CARBON DIOXIDE 26 mmol/l (22-30); CHLORIDE 110 mmol/l (95-108); CREATININE 0.9 mg/dL (0.5-1.0); GFR > 60 ML/MIN (>=60 (CALC)); GFR FOR AFR.AMER. > 60 ML/MIN (>=60 (CALC)); POTASSIUM 4.5 mmol/l (3.5-5.1); SODIUM 143 mmol/l (137-146)
--- NOTE | 2021-12-10 06:13 | NUR ---
CALL FROM ER, PT DROPPED INTO A HR OF 28. PT SLEEPING, AWOKEN BY WRITTER, STATES SHE FEELS FINE. ALERT AND ORIENTED X3.
--- NOTE | 2021-12-10 06:49 | NUR ---
PT RUNNING TRIGEMNY AT THIS TIME.
--- NOTE | 2021-12-10 06:55 | NUR ---
REPORT REC FROM Daniel HAN RN
[2021-12-10 07:00] VITALS: BP 117/54
--- NOTE | 2021-12-10 07:20 | NUR ---
PT LAYING IN BED. A&O X3. O2 VIA NC @3L IN PLACE. COARSE/DIMINISHED BREATH SOUNDS UPON AUSCULTATION. ACTIVE BOWEL SOUNDS X4 QUADRANTS. EDEMA NOTED TO BLE. IV HEALTHY AND PATENT WITH IVF INFUSING PER MAR ORDERS. HAND PACKAGER IN PLACE. ASSESSMENT COMPLETED. DISCUSSED POC. CALL LIGHT WITHIN REACH.
--- NOTE | 2021-12-10 09:55 | NUR ---
DR LANZA AND Josefina HIGHTOWER [employer]IVE [employer]ING MECHANIC AT BEDSIDE DISCUSSING POC
--- NOTE | 2021-12-10 10:32 | NUR ---
6 MIN WT COMPLETED BY Daniel VU; FLIGHT TEACHER AND CM NOTIFIED. O2 REAPPLIED.
[2021-12-10 11:06] VITALS: BP 111/53
[2021-12-10 11:49] LABS: URINE BILIRUBIN - DIPSTICK NEGATIVE (NEGATIVE); URINE BLOOD DIPSTICK NEGATIVE (NEGATIVE); URINE COLOR YELLOW; URINE GLUCOSE - DIPSTICK NEGATIVE (NEGATIVE); URINE KETONE NEGATIVE (NEGATIVE); URINE LEUK ESTERASE NEGATIVE (NEGATIVE); URINE PH 5.5 (4.5-8.0); URINE PROTEIN - DIPSTICK NEGATIVE (NEG-TRACE); URINE UROBILINOGEN - DIPSTICK 0.2 E.U./dL (0.2)
[2021-12-10 11:52] LABS: URINE NITRITE - DIPSTICK NEGATIVE (Negative)
--- NOTE | 2021-12-10 15:00 | NUR ---
#22G TIFFANY INITIATED X2 ATTEMPTS BY THIS GLASS SELECTOR. IV HEALTHY AND PATENT WITH GOOD BLOOD RETURN. IVF RECONNECTED. #20G RAC REMOVED; INTACT UPON REMOVAL. CALL LIGHT WITHIN REACH. NO OTHER NEEDS AT THIS TIME.
[2021-12-10 15:29] VITALS: BP 135/63
--- NOTE | 2021-12-10 15:46 | NUR ---
PT LAYING IN BED. NO DISTRESS NOTED. DENIES ANY NEEDS AT THIS TIME. PT PROVIDED WITH REQUESTED STRAWBERRY ICE CREAM. CALL LIGHT WITHIN REACH.
--- NOTE | 2021-12-10 15:54 | NUR ---
The patient is screened for PT intervention and no needs are identified at this time
[2021-12-10 19:00] VITALS: BP 118/56
--- NOTE | 2021-12-10 20:15 | NUR ---
PT IN BED; A&O X3. PT PRESENTS SOB ON EXERTION; 02 @[address]; DIMINISHED LUNG SOUNDS ON RLL&LLL. TELEMETRY IN PLACE. PT DENIES PAIN AT THIS MOMENT. ACTIVE BOWEL SOUNDS X4 QUADRANTS. BILATERAL EDEMA ON LOWER EXTREMITIES. IV SITE HEALTHY AND PATENT. CALL LIGHT WITHIN REACH.
[2021-12-11] VITALS: BP 137/71
--- NOTE | 2021-12-11 00:30 | NUR ---
PT SLEEPING. NO DISTRESS NOTED. TELEMETRY IN PLACE. PT DENIES PAIN AT THE MOMENT. 02 @ 3L VIA NASAL CANNULA IN PLACE. SAFETY PRECAUTIONS IN PLACE. CALL LIGHT WITHIN REACH.
--- NOTE | 2021-12-11 04:35 | NUR ---
PT C/O PAIN ON BOTH EYES; PT MEDICATED. TELEMETRY IN PLACE. IV SITE HEALTHY AND PATENT. SAFETY PRECAUTIONS IN PLACE. CALL LIGHT WITHIN REACH.
[2021-12-11 04:42] LABS: HEMATOCRIT 46.8 % (37.0-47.0); HEMOGLOBIN 14.8 g/dl (12.0-16.0); MEAN CELL VOLUME 95.7 fL CALC (80.0-100.0); MEAN CORPUSCULAR HGB 30.3 pG CALC (26.0-32.0); MEAN CORPUSCULAR HGB CONC 31.6 g/dL CAL (32.0-36.0); RED BLOOD COUNT 4.89 mill/uL (4.20-5.60); RED CELL DISTRI WIDTH 14.4 % (11.5-15.5)
[2021-12-11 04:44] VITALS: BP 129/69
[2021-12-11 04:48] VITALS: BP 129/68
[2021-12-11 05:12] LABS: ANION GAP 14 (6-22 (CALC)); BUN 19 mg/dL (8-23); BUN/CREATININE RATIO 22 (12-20 (CALC)); CARBON DIOXIDE 27 mmol/l (22-30); CHLORIDE 106 mmol/l (95-108); CREATININE 0.9 mg/dL (0.5-1.0); GFR > 60 ML/MIN (>=60 (CALC)); GFR FOR AFR.AMER. > 60 ML/MIN (>=60 (CALC)); MAGNESIUM 2.2 mg/dL (1.6-2.3); POTASSIUM 4.9 mmol/l (3.5-5.1); SODIUM 142 mmol/l (137-146)
[2021-12-11 07:48] VITALS: BP 148/65
--- NOTE | 2021-12-11 07:48 | NUR ---
PT SLEEPING IN BED, AWAKENED TO COMPLETE ASSESSMENT. A&O X3. NO DISTRESS NOTED. PT DENIES ANY PAIN AT THIS TIME. O2 VIA NC @3L IN PLACE. CLEAR DIMINISHED BREATH SOUNDS UPON AUSCULTATION. ACTIVE BOWEL SOUNDS X4 QUADRANTS. #22G TIFFANY HEALTHY AND PATENT. VIBRATING SCREEN OPERATOR IN PLACE. EDEMA NOTED TO BLE. ASSESSMENT COMPLETED. DISCUSSED POC. CALL LIGHT WITHIN REACH.
--- NOTE | 2021-12-11 09:24 | NUR ---
DR LANZA AND Josefina HIGHTOWER DENTAL INSTRUCTOR AT BEDSIDE DISCUSSING POC
[2021-12-11] MEDS ORDERED: LEVAQUIN750 M1 PO (09:44)
[2021-12-11] MEDS ORDERED: PREDNISONE10 MG PO (09:44)
[2021-12-11 10:46] VITALS: BP 108/59
[2021-12-11 15:06] VITALS: BP 145/67
--- NOTE | 2021-12-11 16:38 | NUR ---
D/C INSTRUCTIONS GIVEN TO PT; PT EDUCATED ON HOW TO PROPERLY USE O2 DEVICE FOR HOME USE. IV REMOVED AND INTACT UPON REMOVAL.
--- NOTE | 2021-12-11 16:55 | NUR ---
Induction Note Patient to [facility] procedure room. Time out performed at . Patient placed on monitors, Triny hugger, bilateral wrist restraints applied for ET tube protection. Versed 5mg given IV push at Tourniquet applied to arm Lidocaine 100mg given at IV push followed by Rocoronium 10mg at IV push and held for 90 seconds. Propofol bolus of mg given at IV push. Succinylcholine 80mg given IV push at . Smooth intubation with 7.5 ETT. Positive CO2. Positive Auscultation for air exchange. Patient placed on ventilator for spontaneous ventilation. Placed on Propofol IV drip at . OG inserted. Positive air on auscultation. Discharge instructions given. Patient verbalizes understanding of same. Discharged in stable condition via Wheelchair to Home with staff with home oxygen; pt instructed& educated how to use. All belongings sent with pt.
== END 2021-12-11 16:55 | disposition home or self-care (01) | DRG 194 ==
LOC: ED 13:32 → ED-I 19:32 → ED 19:53 → MS2 19:54
PROVIDERS: Emergency Medicine; Nurse Practitioner; ADMIT Internal Medicine; ATTEND Internal Medicine
DX: J18.9 Pneumonia, unspecified organism (principal); J44.0 Chronic obstructive pulmonary disease with (acute) lower respiratory infection; J44.1 Chronic obstructive pulmonary disease with (acute) exacerbation; Z68.43 Body mass index [BMI] 50.0-59.9, adult; R09.02 Hypoxemia; I11.0 Hypertensive heart disease with heart failure; I50.9 Heart failure, unspecified; E78.5 Hyperlipidemia, unspecified; E66.9 Obesity, unspecified; G62.9 Polyneuropathy, unspecified; Z20.822 Contact with and (suspected) exposure to COVID-19
CPT/HCPCS: G0378; J1650; Q9967

== ENCOUNTER 2021-12-18 11:32 | Emergency (ER) | payer MEDICARE ==
[2021-12-18] VITALS (24 sets, daily range): BP systolic 81–190; BP diastolic 35–110
[~2021-12-18] VITALS: Ht 165.1 cm; Wt 143.0 kg
[~2021-12-18 11:32] MED LIST changes: +DICLOFENAC75 MG PO; +LASIX 20 MG TAB20 MG PO; +LEVAQUIN750 M1 PO; +LIPITOR10 M1 PO; +PREDNISONE10 MG PO
[2021-12-18 12:13] LABS: HEMATOCRIT 52.2 % (37.0-47.0); HEMOGLOBIN 16.4 g/dl (12.0-16.0); IMMATURE GRANULOCYTES 0.3 % (0.0-5.0); MEAN CELL VOLUME 96.5 fL CALC (80.0-100.0); MEAN CORPUSCULAR HGB 30.3 pG CALC (26.0-32.0); MEAN CORPUSCULAR HGB CONC 31.4 g/dL CAL (32.0-36.0); NEUT# 8.53 thou/uL (2.00-7.15); RED BLOOD COUNT 5.41 mill/uL (4.20-5.60); RED CELL DISTRI WIDTH 14.3 % (11.5-15.5)
[2021-12-18 12:36] LABS: ALBUMIN 3.9 g/dL (3.2-5.0); ALKALINE PHOSPHATASE 83 u/l (38-126); BILIRUBIN, TOTAL 1.2 mg/dL (0.0-1.4); BUN 26 mg/dL (8-23); BUN/CREATININE RATIO 26 (12-20 (CALC)); CHLORIDE 103 mmol/l (95-108); GFR 55 ML/MIN (>=60 (CALC)); GFR FOR AFR.AMER. > 60 ML/MIN (>=60 (CALC)); POTASSIUM 4.2 mmol/l (3.5-5.1); SGOT/AST 35 u/l (9-36); SODIUM 143 mmol/l (137-146); TOTAL PROTEIN 7.3 g/dL (6.3-8.2)
[2021-12-18 12:38] LABS: ANION GAP 9 (6-22 (CALC)); CARBON DIOXIDE 35 mmol/l (22-30)
== END 2021-12-18 21:15 | disposition short-term general hospital (02) ==
LOC: ED 11:32 → ED-I 12:15 → ED 21:15
PROVIDERS: Family Medicine
DX: I11.0 Hypertensive heart disease with heart failure (principal); I50.9 Heart failure, unspecified; I49.3 Ventricular premature depolarization; E66.01 Morbid (severe) obesity due to excess calories; G62.9 Polyneuropathy, unspecified; Z87.01 Personal history of pneumonia (recurrent)
CPT/HCPCS: Q9967

== ENCOUNTER 2022-03-10 10:38 | Emergency (ER) | payer MEDICARE ==
[~2022-03-10] VITALS: Ht 165.1 cm; Wt 147.0 kg
[2022-03-10 10:48] VITALS: BP 111/64
[2022-03-10 11:01] VITALS: BP 126/70
[2022-03-10 11:16] VITALS: BP 109/68
[2022-03-10 11:30] VITALS: BP 96/61
[2022-03-10] MEDS ORDERED: VALACYCLOVIR HCL1 GM PO ×2 (11:56→12:10)
[2022-03-10] MEDS ORDERED: CEPHALEXIN500 M1 PO ×2 (11:56→12:10)
[2022-03-10 12:07] VITALS: BP 96/61
== END 2022-03-10 12:23 | disposition home or self-care (01) ==
LOC: ED 10:38
DX: B02.9 Zoster without complications (principal); I11.0 Hypertensive heart disease with heart failure; I50.9 Heart failure, unspecified; I10 Essential (primary) hypertension; E78.00 Pure hypercholesterolemia, unspecified; G62.9 Polyneuropathy, unspecified; E66.01 Morbid (severe) obesity due to excess calories

== ENCOUNTER 2022-10-21 17:01 | Emergency (ER) | payer MEDICARE ==
[2022-10-21] VITALS (9 sets, daily range): BP systolic 88–142; BP diastolic 46–65
[~2022-10-21] VITALS: Ht 165.1 cm; Wt 143.0 kg
[~2022-10-21 17:01] MED LIST changes: +CEPHALEXIN500 M1 PO; +VALACYCLOVIR HCL1 GM PO
[2022-10-21 17:47] LABS: BASO% 0.4 % (0-3); EOS% 1.8 % (0-8); HEMOGLOBIN 15.1 g/dl (12.0-16.0); IMMATURE GRANULOCYTES 0.1 % (0.0-5.0); LYMPH% 38.7 % (15-41); MEAN CELL VOLUME 94.7 fL CALC (80.0-100.0); MEAN CORPUSCULAR HGB 31.7 pG CALC (26.0-32.0); MEAN CORPUSCULAR HGB CONC 33.5 g/dL CAL (32.0-36.0); MONO% 6.4 % (2-13); NEUT# 3.52 thou/uL (2.00-7.15); NEUT% 52.6 % (42-76); RED BLOOD COUNT 4.76 mill/uL (4.20-5.60); RED CELL DISTRI WIDTH 13.5 % (11.5-15.5)
[2022-10-21 17:49] LABS: HEMATOCRIT 45.1 % (37.0-47.0)
[2022-10-21 18:02] LABS: ALBUMIN 4.4 g/dL (3.2-5.0); BILIRUBIN, TOTAL 1.1 mg/dL (0.0-1.4); CREATININE 1.1 mg/dL (0.5-1.0); POTASSIUM 3.6 mmol/l (3.5-5.1); TOTAL PROTEIN 7.9 g/dL (6.3-8.2)
== END 2022-10-21 19:33 | disposition left against medical advice (07) ==
LOC: ED 17:01
PROVIDERS: Family Medicine
DX: I44.2 Atrioventricular block, complete (principal); I11.0 Hypertensive heart disease with heart failure; I50.9 Heart failure, unspecified; E78.00 Pure hypercholesterolemia, unspecified; J44.9 Chronic obstructive pulmonary disease, unspecified; E66.01 Morbid (severe) obesity due to excess calories; G62.9 Polyneuropathy, unspecified; Z53.29 Procedure and treatment not carried out because of patient's decision for other reasons